=== PATIENT | male | born 1965 | race African-American/Black ===

== ENCOUNTER 2016-11-17 20:30 | Emergency (ER) | payer OTHER ==
[~2016-11-17] VITALS: Ht 175.3 cm; Wt 87.5 kg
[~2016-11-17 20:30] MED LIST: IBUP-40; IBUPROFEN PRN; NAPR375T; [UNRECOGNIZED DRUG - CODE]
[2016-11-17 20:33] VITALS: Ht 175.3 cm; Wt 87.5 kg
[2016-11-17] MEDS ORDERED: SOD CHLORIDE 0.9% 1,000 ML IV STA (21:57)
[2016-11-17] MEDS ORDERED: ONDANSETRON 4 MG INJ IV STA (21:57)
[2016-11-17 23:02] LABS: ADD SCAN DIFF NO
--- NOTE | 2016-11-17 23:02 | RADRPT ---
PROCEDURE: CT Head without. CLINICAL INDICATION: Headaches status post fall. TECHNIQUE: The study was performed utilizing a multi-slice, multidetector CT scanner. Direct spira l 1 mm axial sections were obtained through the head without the use of intravenous contrast materia l. 1 or more of the following dose reduction techniques were utilized: Automated exposure control, adjustment of the mA and/or kV according to patient's size, iterative reconstruction technique. Co veronika and sagittal reformations were obtained. The images were reviewed on a PACS workstation. RADIATION DOSE: CTDIvol: 42.0 mGyDLP: 720.2 mGy-cm COMPARISON: No prior studies are available for comparison. FINDINGS: There is no intracranial hemorrhage, extra-axial fluid collection, mass lesion, midline shift or hyd rocephalus. The ventricles, sulci and cisterns are within normal limits. The white matter is unrem arkable. The foy-white matter differentiation is preserved. The basal cisterns are patent. The m idline structures are intact. The orbits, calvarium and extracranial soft tissues are normal in alona earance. The visualized paranasal sinuses, mastoid air cells and middle ear cavities are normally ae rated. There is mild hyperostosis frontalis interna, normal variant. IMPRESSION: 1. No acute intracranial abnormality. No intracranial hemorrhage, extra-axial fluid collection, ma ss lesion or hydrocephalous. RPTAT: HGAS .Franklin Rios MD, Date Time Electronically viewed and signed by .Franklin Rios MD, on 11/17/2016 23:02 .S/
[2016-11-17 23:03] LABS: BASOPHILS % 0.2 % (0.0-2.0); EOSINOPHILS # 0.1 10^3/ul (0.0-0.5); EOSINOPHILS % 1.1 % (0.0-7.0); HEMATOCRIT 36.8 % (42.0-52.0); HEMOGLOBIN 12.6 g/dl (14.0-18.0); LYMPHOCYTES # 2.8 10^3/ul (0.8-2.9); LYMPHOCYTES % 22.6 % (15.0-51.0); MEAN CORPUSCULAR HGB CONC 34.2 g/dl (32.0-37.0); MEAN CORPUSCULAR VOLUME 90.4 fl (82.0-101.0); MEAN PLATELET VOLUME 9.4 fl (7.4-10.4); MONOCYTES % 8.3 % (0.0-11.0); NEUTROPHIL # 8.4 10^3/ul (1.6-7.5); NEUTROPHILS % 66.7 % (39.0-77.0); PLATELET COUNT 344 10^3/UL (140-415); RED BLOOD COUNT 4.07 10^6/ul (4.70-6.10); RED CELL DISTRIBUTION WIDTH 12.2 % (11.5-14.5); WHITE BLOOD COUNT 12.5 10^3/ul (4.8-10.8)
[2016-11-17] MEDS ORDERED: DICLOFENAC SODIUM 37.5 MG/ML VIAL IV STA (23:12)
[2016-11-17 23:22] LABS: ALANINE AMINOTRANSFERASE 50 IU/L (13-69); ALBUMIN 4.8 g/dl (3.3-4.9); ALBUMIN/GLOBULIN RATIO 1.26; ALKALINE PHOSPHATASE 101 IU/L (42-121); ANION GAP 14 (8-16); ASPARTATE AMINO TRANSFERASE 38 IU/L (15-46); BILIRUBIN,INDIRECT 0.9 mg/dl (0-1.1); BILIRUBIN,TOTAL 0.9 mg/dl (0.2-1.3); BLOOD UREA NITROGEN 12 mg/dl (7-20); CALCIUM 9.4 mg/dl (8.4-10.2); CARBON DIOXIDE 28 mmol/L (21-31); CHLORIDE 97 mmol/L (97-110); CREATININE 1.01 mg/dl (0.61-1.24); GLUCOSE 104 mg/dl (70-220); POTASSIUM 3.4 mmol/L (3.5-5.1); SODIUM 136 mmol/L (135-144); TOTAL PROTEIN 8.6 g/dl (6.1-8.1)
[2016-11-17 23:33] LABS: TROPONIN-I < 0.012 ng/ml (0.00-0.12)
[2016-11-18] MEDS ORDERED: NAPR-688 PO (01:45)
[2016-11-18] MEDS ORDERED: ALPR0.5T PO (01:47)
--- NOTE | 2016-11-18 01:53 | ERD ---
ER Documentation Chief Complaint Date/Time DATE: 11/18/16 TIME: 01:50 Chief Complaint sp ground level fall last night w/ loc, headache, body aches, insomnia HPI 51-year-old male came to the emergency room because he has been having viral syndrome/URI symptoms for about a week with body aches mild cough. He comes in the emergency room however because he is taking his codeine cough syrup last night he got dizzy and hit his head in the bathroom. He was then unable to sleep last night and does have a headache. He has no neurological symptoms. He has no neck stiffness and has had no fever. ROS All systems reviewed and are negative except as per history of present illness. Medications Home Meds Active Scripts Alprazolam* (Xanax*) 0.5 Mg Tab, 0.5 MG PO QHS Y for INSOMNIA, #5 TAB Prov:MARY FORDSHUA DO 11/18/16 Naproxen* (Naproxen*) 500 Mg Tablet, 500 MG PO BID Y for PAIN, #20 TAB Prov:LILIANASTEPHON DO 11/18/16 Discontinued Reported Medications Acetaminophen/Dp-Hydram Hcl (Tylenol Pm Ex-Str Gelcap) 1 Tab Tablet 07/08/09 Ibuprofen (Advil) 200 Mg Tablet 07/08/09 Naproxen* (Naprosyn*) 375 Mg Tablet 07/08/09 [Ibuprofen Prn] No Conflict Check 07/08/09 Allergies Allergies: Coded Allergies: Penicillins (Verified Allergy, Intermediate, UNK, 07/08/09) PMhx/Soc Medical and Surgical Hx: pt denies Surgical Hx History of Surgery: No Hx Neurological Disorder: No Hx Respiratory Disorders: No Hx Cardiac Disorders: No Hx Miscellaneous Medical Probl: Yes (ARTHRITIS (KNEES AND BACK)) Hx Alcohol Use: No Hx Substance Use: No Hx Tobacco Use: Yes Smoking Status: Current every day smoker Physical Exam Vitals Vital Signs Date Time Temp Pulse Resp B/P Pulse Ox O2 Delivery O2 Flow Rate FiO2 11/18/16 01:22 76 18 109/79 97 Room Air 11/17/16 22:31 95 18 142/89 99 Room Air 11/17/16 20:33 98.7 88 20 144/77 98 Physical Exam Const: [] No distress Head: Atraumatic Eyes: Normal Conjunctiva, EOMI, PRL ENT: Normal External Ears, Nose and Mouth. Neck: Full range of motion..~ No meningismus. Resp: Clear to auscultation bilaterally Cardio: Regular rate and rhythm, no murmurs Abd: Soft, non tender, non distended. Normal bowel sounds Skin: No petechiae or rashes Back: No midline or flank tenderness Ext: No cyanosis, or edema Neur: Awake and alert and oriented 3, cranial nerves II through XII intact, no cerebellar deficits, normal gait Psych: Normal Mood and Affect Result Diagram: 11/17/16221911/17/162219 Results 24 hrs Laboratory Tests Test 11/17/16 22:20 White Blood Count 12.510^3/ul Red Blood Count 4.0710^6/ul Hemoglobin 12.6g/dl Hematocrit 36.8% Mean Corpuscular Volume 90.4fl Mean Corpuscular Hemoglobin 31.0pg Mean Corpuscular Hemoglobin Concent 34.2g/dl Red Cell Distribution Width 12.2% Platelet Count 58615^3/UL Mean Platelet Volume 9.4fl Neutrophils % 66.7% Lymphocytes % 22.6% Monocytes % 8.3% Eosinophils % 1.1% Basophils % 0.2% Nucleated Red Blood Cells % 0.0/100WBC Neutrophils # 8.410^3/ul Lymphocytes # 2.810^3/ul Monocytes # 1.010^3/ul Eosinophils # 0.110^3/ul Basophils # 0.010^3/ul Nucleated Red Blood Cells # 0.010^3/ul Sodium Level 136mmol/L Potassium Level 3.4mmol/L Chloride Level 97mmol/L Carbon Dioxide Level 28mmol/L Anion Gap 14 Blood Urea Nitrogen 12mg/dl Creatinine 1.01mg/dl Glucose Level 104mg/dl Calcium Level 9.4mg/dl Total Bilirubin 0.9mg/dl Direct Bilirubin 0.00mg/dl Indirect Bilirubin 0.9mg/dl Aspartate Amino Transf (AST/SGOT) 38IU/L Alanine Aminotransferase (ALT/SGPT) 50IU/L Alkaline Phosphatase 101IU/L Troponin I < 0.012ng/ml Total Protein 8.6g/dl Albumin 4.8g/dl Globulin 3.80g/dl Albumin/Globulin Ratio 1.26 Lipase 40U/L Current Medications Medications (Trade) Dose Ordered Sig/Saray Route PRN Reason Start Time Stop Time Status Last Admin Dose Admin Sodium Chloride (NS) 1,000 ml @ 1,000 mls/hr Q1H STAT IV 11/17/16 21:57 11/17/16 22:56 DC 11/17/16 22:20 Ondansetron HCl (Zofran Inj) 4 mg ONCE STAT IV 11/17/16 21:57 11/17/16 21:59 DC 11/17/16 22:20 Diclofenac Sodium (Dyloject) 37.5 mg ONCE STAT IV 11/17/16 23:12 11/17/16 23:13 DC 11/17/16 23:57 Procedures/MDM Symptoms of viral syndrome and well-appearing patient. Also had head injury with possible concussion syndrome is unable to sleep had a headache. Head CT is negative for any hemorrhage I doubt subarachnoid hemorrhage also because of patient's mild headache. Very low suspicion for meningitis as patient has no meningismus or fevers. Mild leukocytosis. He is already on azithromycin for his viral infection from a different doctor. I am having him finish the treatment. Also discharging with naproxen and 5.5 mg Xanax pills for sleep. EKG interpretation: Normal sinus rhythm rate of 88, normal axis, no ST or T- wave changes concerning for acute ischemia, normal intervals, nonspecific T- wave abnormality. CT head interpretation: I see no acute process. I see no hemorrhage, no mass- effect no midline shift, no skull fracture. Departure Diagnosis: Primary Impression: Viral syndrome Additional Impression: Head injury Condition: Stable Patient Instructions: Concussion in adults, Viral Syndrome (Adult) Additional Instructions: Call your primary care doctor TOMORROW for an appointment during the next 2-3 days.See the doctor sooner or return here if your condition worsens before your appointment time. STEPHON FORD DO Nov 18, 2016 01:53
[2016-11-18 01:54] VITALS: BP 108/68; PULSE 79; RESP 16
== END 2016-11-18 01:55 | disposition home or self-care (01) ==
LOC: E/R 20:30
DX: B34.9 Viral infection, unspecified (principal); F17.210 Nicotine dependence, cigarettes, uncomplicated; R42 Dizziness and giddiness; W18.39XA Other fall on same level, initial encounter
CPT/HCPCS: 70450; 80053; 83690; 84484; 85025; J2405; J7030; Z7610; 36415; 93005; 96374; 96375